=== PATIENT | male | born 1995 | race African-American/Black ===

== ENCOUNTER 2022-08-19 02:44 | Emergency (ER) | payer SELFPAY ==
[~2022-08-19] VITALS: Ht 183 cm; Wt 102.0 kg
[2022-08-19 02:52] VITALS: BP 140/87
[2022-08-19] MEDS ORDERED: BENZ100C18 PO (03:09)
--- NOTE | 2022-08-19 03:10 | ED Cough/URI ---
General Chief Complaint: Cough/Cold/Flu Symptoms Stated Complaint: COUGH Nursing Triage Note: COUGH, RUNNY NOSE, SORE THROAT X3 DAYS. Source: patient Exam Limitations: no limitations History of Present Illness Date Seen by Provider: Aug 19, 2022 Time Seen by Provider: 02:58 Initial Comments 27-year-old male with asthma presents for cough runny nose and sore throat for 3 days. His roommate recently had similar symptoms. Roommate went to a clinic and was tested for COVID which was reportedly negative. He has not had to use his asthma inhaler. No chest pain or abdominal pain. No nausea or vomiting Allergies and Home Medications Allergies Coded Allergies: No Known Drug Allergies (Unverified , 08/19/22) Patient Home Medication List Home Medication List Reviewed: Yes No Active Prescriptions or Reported Meds Review of Systems Review of Systems Constitutional: no symptoms reported EENTM: nose congestion, throat pain Respiratory: cough Cardiovascular: no symptoms reported Gastrointestinal: no symptoms reported Genitourinary: no symptoms reported Musculoskeletal: no symptoms reported Skin: no symptoms reported Psychiatric/Neurological: No Symptoms Reported Hematologic/Lymphatic: No Symptoms Reported Immunological/Allergic: no symptoms reported Past Oullqlj-Obzbkg-Ihuvjh Hx Patient Social History Tobacco Use?: Yes Substance use?: No Alcohol Use?: Yes Alcohol Frequency: Once in a while Pt feels they are or have been: No Immunizations Up To Date First/Initial COVID19 Vaccinat: na Past Medical History Surgery/Hospitalization HX: DENIES Family Medical History Reviewed Nursing Family Hx No Pertinent Family Hx Physical Exam Vital Signs - First Documented 08/19/22 02:52 Temp 36.9 Pulse 84 Resp 16 B/P (MAP) 140/87 (104) Pulse Ox 98 O2 Delivery Room Air Capillary Refill : Less Than 3 Seconds Height: '" Weight: lbs. oz. kg; 30.00 BMI Method: General Appearance: WD/WN, no apparent distress HEENT: PERRL/EOMI, normal ENT inspection, TMs normal, pharynx normal Neck: non-tender, full range of motion, supple, normal inspection Respiratory: chest non-tender, lungs clear, normal breath sounds, no respiratory distress, no accessory muscle use Cardiovascular: normal peripheral pulses, regular rate, rhythm, no edema, no gallop, no JVD, no murmur Gastrointestinal: normal bowel sounds, non tender, soft, no organomegaly, no pulsatile mass Extremities: non-tender, normal inspection, no pedal edema, normal capillary refill Neurologic/Psychiatric: alert, normal mood/affect, oriented x 3 Skin: normal color, warm/dry Lymphatic: no adenopathy Progress/Results/Core Measures Suspected Sepsis SIRS Temperature: Pulse: 84 Respiratory Rate: 16 Blood Pressure 140 /87 Mean: 104 Results/Orders Vital Signs/I&O 08/19/22 02:52 Temp 36.9 Pulse 84 Resp 16 B/P (MAP) 140/87 (104) Pulse Ox 98 O2 Delivery Room Air Capillary Refill : Less Than 3 Seconds Blood Pressure Mean: 104 Departure Communication (Admissions) Patient is hemodynamically stable with a normal exam. Vital signs are normal. Symptoms most consistent with common cold. He is not wheezing at all with no evidence of asthma exacerbation. No evidence for bacterial infection at this time. Discharged in stable condition with supportive care for Impression Primary Impression: Common cold Disposition: HOME, SELF-CARE Condition: Stable Departure-Patient Inst. Referrals: NO,LOCAL PHYSICIAN (PCP/Family) Primary Care Physician Patient Instructions: Viral Upper Respiratory Infection, Adult (DC) Add. Discharge Instructions: Increase your fluids at home, rest. I would try Zyrtec-D or Claritin-D [id number]. I have given you the medicine which may work for your cough. You can also use honey on top of this. Return to the emergency department for any severe concerns. Follow-up with your primary doctor for any nonemergent needs All discharge instructions reviewed with patient and/or family. Voiced understanding. Scripts Benzonatate (GIULIA GOMES) 100 Mg Capsule 100 MG PO TID for cough for 3 Days, #9 CAP Prov: ASAD DIAZ DO 08/19/22 ASAD DIAZ DO Aug 19, 2022 03:10
== END 2022-08-19 03:12 | disposition home or self-care (01) ==
LOC: ER 02:50
DX: J00 Acute nasopharyngitis [common cold] (principal); Z72.0 Tobacco use; Z28.310 Unvaccinated for COVID-19
CPT/HCPCS: 99283

== ENCOUNTER 2022-10-30 01:07 | Emergency (ER) | payer OTHER ==
[~2022-10-30 01:07] MED LIST: BENZ100C18 PO
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
[2022-10-30] MEDS ORDERED: fentaNYL INJ 100 MCG/2 ML AMP ONE (02:06)
[2022-10-30] MEDS ORDERED: MIDAZOLAM 5 MG/5 ML (VERSED) VIAL ONE (02:06)
[2022-10-30] MEDS ORDERED: KETOROLAC 30 MG/ML VIAL IVP ONE (02:15)
[2022-10-30] MEDS ORDERED: ACHD5005 PO (02:31)
[2022-10-30 03:30] VITALS: BP 133/88
--- NOTE | 2022-10-30 06:14 | Diagnostic Imaging Report ---
KNEE, LEFT, 3 VIEWS INDICATION: Knee pain. COMPARISON: None available. TECHNIQUE: 2 views left knee FINDINGS: There is irregularity of the inferior aspect of the patella with a probable avulsed fracture fragment. Additionally, the patella is high riding and there is soft tissue thickening in the expected region of the patellar tendon likely from rupture. No knee joint effusion. No other acute fracture. IMPRESSION: 1. Fracture of the lower pole of the patella is likely due to avulsion and rupture of the patellar tendon. 2. Agree with the preliminary interpretation by Emergency Room physician. Dictated by: Dictated on workstation # [id number]
[2022-11-02] MEDS ORDERED: ACHD5005 PO (12:37)
== END 2022-10-30 03:30 | disposition home or self-care (01) ==
LOC: EDUNIT# 01:07 → ER 01:11
DX: S83.095A Other dislocation of left patella, initial encounter (principal); F17.210 Nicotine dependence, cigarettes, uncomplicated; Z28.310 Unvaccinated for COVID-19; X99.8XXA Assault by other sharp object, initial encounter
CPT/HCPCS: 73562; 93041

== ENCOUNTER → 2022-11-05 | Outpatient (CLI) | payer OTHER ==
[~2022-11-05] MED LIST changes: +ACHD5005 PO
== END ==
LOC: ORTHO 16:22
PROVIDERS: ATTEND Orthopaedic Surgery
DX: S76.112A Strain of left quadriceps muscle, fascia and tendon, initial encounter (principal); X58.XXXA Exposure to other specified factors, initial encounter
CPT/HCPCS: 99203

== ENCOUNTER → 2022-11-05 | Outpatient (CLI) | payer SELFPAY ==
[~2022-11-05] VITALS: Ht 182.9 cm; Wt 101.0 kg
== END | disposition home or self-care (01) ==
LOC: PREOP 15:37
PROVIDERS: ATTEND Orthopaedic Surgery
DX: Z01.818 Encounter for other preprocedural examination (principal)

== ENCOUNTER 2022-11-09 06:22 | Day surgery (SDC) | payer OTHER ==
[2022-11-09] VITALS (12 sets, daily range): BP systolic 127–165; BP diastolic 86–109
[~2022-11-09] VITALS: Ht 182.9 cm; Wt 101.0 kg
[2022-11-09] MEDS: LACTATED RINGERS 1,000 ML IV PRN ×2 (06:57→09:39)
[2022-11-09] MEDS ORDERED: ceFAZolin INJECTION 2,000 MG in NS (IVPB) 50 ML IV ONE (07:00)
[2022-11-09] MEDS ORDERED: fentaNYL INJ 100 MCG/2 ML AMP ONE (07:11)
[2022-11-09] MEDS ORDERED: LIDOCAINE PF 2% 5 ML (XYLOCAINE) VIAL ONE (07:11)
[2022-11-09] MEDS ORDERED: SEVOFLURANE (ULTANE) 15 ML INHAL SOLN ONE ×2 (07:11→10:10)
[2022-11-09] MEDS ORDERED: proPOfol 200 MG/20 ML (DIPRIVAN) VIAL IV ONE ×2 (07:11→08:57)
[2022-11-09] MEDS ORDERED: MIDAZOLAM 2 MG/2 ML (VERSED) VIAL ONE (07:11)
[2022-11-09] MEDS ORDERED: ONDANSETRON 4 MG/2 ML (SDV) Z0FRAN ONE (07:11)
[2022-11-09] MEDS ORDERED: fentaNYL INJ 100 MCG/2 ML AMP IV ONE (07:30)
--- NOTE | 2022-11-09 08:32 | Progress Note-Pre Operative ---
Pre-Operative Progress Note Date of Available H&P: Nov 05, 2022 Date H&P Reviewed: Nov 09, 2022 Time H&P Reviewed: 08:20 History & Physical: H&P Reviewed, Patient Examed, No changes noted Pre-Operative Diagnosis: Left Patellar Tendon Rupture HOSSEIN ASHRAF MD Nov 09, 2022 08:32
[2022-11-09] MEDS ORDERED: GLYCOPYRROLATE 0.2 MG/ML (ROBINUL) 2 ML VIAL ONE (08:55)
[2022-11-09] MEDS ORDERED: ROPIVACAINE 5MG/ML 30ML VIAL ONE (08:58)
[2022-11-09] MEDS ORDERED: HYDROmorphone 2 MG/ML VIAL (DILAUDID) ONE ×2 (09:06→09:27)
[2022-11-09] MEDS ORDERED: KETAMINE 50 MG/5 ML SYRINGE ONE (09:26)
[2022-11-09] MEDS ORDERED: KETOROLAC 30 MG/ML VIAL ONE (09:57)
--- NOTE | 2022-11-09 10:29 | Operative Report - Ortho ---
Operative Report Surgeon (s)/Importer Or Exporter (s) Surgeon HOSSEIN ASHRAF MD Importer Or Exporter n/a Pre-Operative Diagnosis Left Patellar Tendon Rupture Post-Operative Diagnosis same Operative Report Date of Procedure: Nov 09, 2022 Name of Procedure Performed: Repair of Left Patellar Tendon Rupture Description & Findings After obtaining informed consent and marking the patient in the preoperative holding area, patient received IV antibiotics. Patient was taken to the operating room. General and regional anesthesia were induced. Surgical timeout was taken. The left lower extremity was prepped and draped in the usual sterile fashion. Incision was made from superior edge of patella to tibial tubercle. Blunt dissection was carried down and the rupture site was easily identified. Rongeur was used to remove clot and create a trough in the inferior pole of the patella. Paratenon was divided and the patellar tendon was exposed. The area of rupture proximally was freshened with scissors. A Krackow suture of #5 Ethibond was placed medially in the tendon and then a second Krackow suture was placed laterally. A lateral hole was drilled through the patella and one arm of each suture was passed. A medial hole was drilled and the remaining sutures limbs were passed through this holw. Knee was brought into extension and a patellar clamp was used to put distal traction on the patella. Both sutures were tied and demonstrated tight repair of the tendon to the bone trough. #1 Ethibond was used to perform retinacular repair. The wound was lavaged with normal saline. Knee was flexed and the repair remained intact without gapping. Subcutaneous layer was repaired with 2-0 vicryl. Skin was repaired with 3-0 v- loc. Wound was dressed with xeroform, 4x4s, ABD, webril, and MARIA G wrap. Patient tolerated the procedure well and was stable to the recovery room. Anesthesia Type General plus regional Estimated Blood Loss 100 mL Specimen(s) collected/removed None HOSSEIN ASHRAF MD Nov 09, 2022 10:29
[2022-11-09] MEDS ORDERED: HYDROmorphone 2 MG/ML VIAL (DILAUDID) IV ONE (10:30)
[2022-11-09] MEDS ORDERED: ONDANSETRON 4 MG/2 ML (SDV) Z0FRAN IVP PRN (10:30)
[2022-11-09] MEDS ORDERED: MEPERIDINE (DEMEROL) INJ 50 MG/ML IVP ONE (10:30)
[2022-11-09] MEDS ORDERED: ACHD5005 PO (10:32)
[2022-11-09] MEDS ORDERED: LABETALOL HCL 20 MG/4 ML VIAL ONE (11:11)
--- NOTE | 2022-11-09 13:25 | Anesthesia-General Post-Op ---
General Patient Condition Mental Status/LOC: Same as Preop Cardiovascular: Satisfactory Nausea/Vomiting: Absent Respiratory: Satisfactory Pain: Controlled Complications: Absent Post Op Complications Complications None Follow Up Care/Instructions Patient Instructions None needed. Anesthesia/Patient Condition Patient Condition Patient is doing well, no complaints, stable vital signs, no apparent adverse anesthesia problems. No complications reported per nursing. [place] [facility] [place]: Yes KEVIN THURMAN CRNA Nov 09, 2022 13:25
[2022-11-13] MEDS ORDERED: ACHD5005 PO (14:09)
== END 2022-11-09 12:30 | disposition home or self-care (01) ==
LOC: SDC 06:22
PROVIDERS: ATTEND Orthopaedic Surgery
DX: S76.112A Strain of left quadriceps muscle, fascia and tendon, initial encounter (principal); J45.909 Unspecified asthma, uncomplicated; Z28.310 Unvaccinated for COVID-19; X58.XXXA Exposure to other specified factors, initial encounter
CPT/HCPCS: 87081

== ENCOUNTER → 2022-11-19 | Outpatient (CLI) | payer OTHER | LOC: ORTHO 10:29 | PROVIDERS: ATTEND Orthopaedic Surgery | DX: Z09 Encounter for follow-up examination after completed treatment for conditions other than malignant neoplasm (principal) ==

== ENCOUNTER → 2022-12-03 | Outpatient (CLI) | payer OTHER | LOC: ORTHO 11:24 | PROVIDERS: ATTEND Orthopaedic Surgery | DX: Z47.89 Encounter for other orthopedic aftercare (principal) ==

== ENCOUNTER 2023-01-16 19:57 | Emergency (ER) | payer OTHER ==
[~2023-01-16] VITALS: Ht 182 cm; Wt 127.0 kg
[2023-01-16] MEDS ORDERED: LACTATED RINGERS 1,000 ML IV ONE (20:30)
[2023-01-16 20:33] LABS: BASOPHILS % (AUTO) 1 % (0-10); EOSINOPHILS # (AUTO) 0.2 10^3/uL (0.0-0.3); EOSINOPHILS % (AUTO) 2 % (0-10); HEMATOCRIT 47 % (40-54); HEMOGLOBIN 15.9 g/dL (13.3-17.7); LYMPHOCYTES # (AUTO) 2.1 10^3/uL (1.0-4.0); LYMPHOCYTES % (AUTO) 27 % (12-44); MEAN CORPUSCULAR HEMOGLOBIN 30 pg (25-34); MEAN CORPUSCULAR HGB CONC 34 g/dL (32-36); MEAN CORPUSCULAR VOLUME 88 fL (80-99); MEAN PLATELET VOLUME 10.7 fL (9.0-12.2); MONOCYTES # (AUTO) 0.8 10^3/uL (0.0-1.0); MONOCYTES % (AUTO) 10 % (0-12); NEUTROPHILS # (AUTO) 4.9 10^3/uL (1.8-7.8); NEUTROPHILS % (AUTO) 61 % (42-75); PLATELET COUNT 208 10^3/uL (130-400); WHITE BLOOD COUNT 8.1 10^3/uL (4.3-11.0)
[2023-01-16 20:40] LABS: BILIRUBIN,URINE NEGATIVE (NEGATIVE); CLARITY,URINE CLEAR; COLOR,URINE YELLOW; GLUCOSE, URINE (UA) NEGATIVE (NEGATIVE); KETONES,URINE NEGATIVE (NEGATIVE); LEUKOCYTE ESTERASE ,URINE NEGATIVE (NEGATIVE); NITRITE,URINE NEGATIVE (NEGATIVE); PROTEIN,URINE NEGATIVE (NEGATIVE)
[2023-01-16 20:41] LABS: FIBRIN DEGRADATION PRODUCTS 0.84 UG/ML (0.00-0.49); INR 0.9 (0.8-1.4); PROTHROMBIN TIME PATIENT 12.8 SEC (12.2-14.7)
[2023-01-16] MEDS ORDERED: ONDANSETRON 4 MG/2 ML (SDV) Z0FRAN IVP ONE (20:45)
[2023-01-16] MEDS ORDERED: CATHETER FLUSH 10 ML SYR IV PRN (20:45)
[2023-01-16] MEDS ORDERED: HOLD METFORMIN - RECEIVED CONTRAST 20 ML VIAL IV SCH ×2 (20:45→21:15)
[2023-01-16] MEDS ORDERED: IOHEXOL 350 MG/ML 100 ML (OMNIPAQUE 350) VIAL IV ONE ×2 (20:45→21:15)
[2023-01-16] MEDS ORDERED: PANTOPRAZOLE 40 MG (PROTONIX) VIAL IV ONE (20:45)
[2023-01-16] MEDS ORDERED: NS 100 ML (IVPB) BAG IV ONE ×2 (20:45→21:15)
[2023-01-16 20:48] LABS: ALANINE AMINOTRANSFERASE 22 U/L (0-55); ALBUMIN 4.5 GM/DL (3.2-4.5); ALKALINE PHOSPHATASE 85 U/L (40-136); AMYLASE 125 U/L (25-125); BILIRUBIN,TOTAL 0.7 MG/DL (0.1-1.0); BUN/CREATININE RATIO 13; CALCIUM 9.7 MG/DL (8.5-10.1); CARBON DIOXIDE 22 MMOL/L (21-32); CHLORIDE 103 MMOL/L (98-107); CREATINE KINASE 446 U/L (30-200); CREATININE SERUM 1.04 MG/DL (0.60-1.30); GFR ESTIMATED 100; GLUCOSE 109 MG/DL (70-105); LIPASE 100 U/L (8-78); SODIUM 137 MMOL/L (135-145); TOTAL PROTEIN 7.8 GM/DL (6.4-8.2)
[2023-01-16 20:48] LABS: BACTERIA,URINE TRACE /HPF; RBC,URINE RARE /HPF; SQUAMOUS EPITHELIAL CELL,UR RARE /HPF; WBC,URINE RARE /HPF
[2023-01-16 20:54] LABS: ACETAMINOPHEN < 10 UG/ML (10-30)
[2023-01-16 20:55] LABS: CREATINE KINASE MB 3.1 NG/ML (<6.6)
[2023-01-16 20:57] LABS: AMPHETAMINE SCREEN, URINE NEGATIVE (NEGATIVE); BARBITURATE SCREEN URINE NEGATIVE (NEGATIVE); BENZODIAZEPINES SCREEN URINE NEGATIVE (NEGATIVE); CANNABINOID SCREEN, URINE POSITIVE (NEGATIVE); COCAINE SCREEN URINE NEGATIVE (NEGATIVE); METHADONE STAT NEGATIVE (NEGATIVE); OPIATE SCREEN URINE NEGATIVE (NEGATIVE); OXYCODONE STAT NEGATIVE (NEGATIVE); TRICYCLIC ANTIDEPRESSANTS SCRE NEGATIVE (NEGATIVE)
[2023-01-16 20:58] LABS: PROPOXYPHENE STAT NEGATIVE (NEGATIVE)
[2023-01-16 20:58] LABS: ERYTHROCYTE SEDIMENTATION RATE 7 MM/HR (0-15)
--- NOTE | 2023-01-16 21:43 | Diagnostic Imaging Report ---
INDICATION: Chest and abdominal pain. CTA chest, abdomen and pelvis Thin axial sections through the chest, abdomen and pelvis are obtained following intravenous contrast bolus. Multiplanar MIP images were reconstructed and reviewed. All CT scans use one or more of the following dose optimizing techniques: automated exposure control, MA and/or KvP adjustment based on patient size and exam type or iterative reconstruction. COMPARISON: None available. FINDINGS: CTA CHEST: No pulmonary emboli. Normal caliber thoracic aorta without dissection. Lungs are clear. No pleural effusion or pneumothorax. No intrathoracic lymphadenopathy. 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 Remainder of the visualized skeletal structures normal. CT ABDOMEN and PELVIS WITH: No free intraperitoneal air or fluid. The liver, gallbladder, spleen and pancreas are all normal. Adrenals, kidneys and urinary bladder normal. Prostate is not enlarged. Bowel is unremarkable. Normal appendix. Normal caliber abdominal aorta without dissection. Normal regional skeleton. IMPRESSION: 1. No acute abnormality in the chest, abdomen or pelvis. Dictated by: Dictated on workstation # [id number]
[2023-01-16] MEDS ORDERED: KETOROLAC 30 MG/ML VIAL IVP ONE (22:15)
[2023-01-16] MEDS ORDERED: METOCLOPRAMIDE INJ 10 MG/2 ML (REGLAN) IVP ONE (22:15)
--- NOTE | 2023-01-16 22:25 | ED Abdominal Pain ---
General Chief Complaint: Abdominal/GI Problems Stated Complaint: STOMACH PAIN Nursing Triage Note: PATIENT REPORTS ABDOMINAL PAIN STARTED YESTERDAY. STATES VOMITTED YESTERDAY, INTENSE ABDOMINAL CRAMPING TODAY. Source of Information: Patient History of Present Illness Date Seen by Provider: Jan 16, 2023 Time Seen by Provider: 20:18 Initial Comments PT ARRIVES VIA POV FROM HOME C/O ABDOMINAL PAIN SINCE YESTERDAY AFTERNOON PAIN IS ALL OVER, AND IS CONSTANT, RATES PAIN 8/10 PAIN IS WORSE WITH MOVEMENTS OR BREATHING, OR COUGHING DOES NOT FEEL SHORT OF BREATH, JUST HURTS TO BREATHE HE VOMITED YESTERDAY FROM [id number] AM, NO VOMITING SINCE, BUT IS STILL NAUSEATED HAD NORMAL BM THIS AM NO URINARY SYMPTOMS AND VOIDING A NORMAL AMOUNT NO FEVER HE HAS NOT TAKEN ANYTHING FOR SYMPTOMS NO HISTORY OF SIMILAR PT DRINKS ALCOHOL DAILY--3-4 BEERS PLUS 2-3 SHOTS OF HARD LIQUOR EVERY DAY, HE ALSO SMOKES MARIJUANA DAILY, AND SMOKES 1 PPD CIGARETTES HAS HISTORY OF ASTHMA, NO HISTORY OF GI PROBLEMS OR ABDOMINAL SURGERY PT HAD LEFT KNEE SURGERY IN OCTOBER--OPEN KNEE SURGERY FOR PATELLAR TENDON RUPTURE. PCP: [facility], BUT RARELY GOES THERE Allergies and Home Medications Allergies Coded Allergies: No Known Drug Allergies (Unverified , 08/19/22) Patient Home Medication List Home Medication List Reviewed: Yes Dicyclomine HCl (Dicyclomine HCl) 20 Mg Tablet, 20 MG PO Q6H Prescribed by: KY THOMPSON on 01/16/232231 Hydrocodone/Acetaminophen (Hydrocodone-Acetamin 5-325 mg) 5 Mg-325 Mg Tablet, 1 EACH PO Q4H PRN for PAIN Prescribed by: KIMBERLY YOST on 11/13/22 1410 Ondansetron (Ondansetron Odt) 8 Mg Tab.rapdis, 8 MG PO Q6H Prescribed by: KY THOMPSON on 01/16/232231 Pantoprazole Sodium (Protonix) 40 Mg Tablet.dr, 40 MG PO DAILY Prescribed by: KY THOMPSON on 01/16/232231 Review of Systems Review of Systems Constitutional: no symptoms reported Respiratory: See HPI Cardiovascular: No Symptoms Reported Gastrointestinal: See HPI, Abdominal Pain; Denies Constipated, Denies Diarrhea; Nausea, Vomiting Genitourinary: No Symptoms Reported Musculoskeletal: no symptoms reported Skin: no symptoms reported Psychiatric/Neurological: No Symptoms Reported Endocrine: No Symptoms Reported Hematologic/Lymphatic: No Symptoms Reported Past Mxncivn-Vlmjwn-Xdazjl Hx Patient Social History Tobacco Use?: Yes Tobacco type used: Cigarettes Smoking Status: Current Everyday Smoker Substance use?: Yes Substance type: Marijuana Substance frequency: Daily Alcohol Use?: Yes Alcohol type: Beer, Hard Liquor Alcohol Frequency: Daily Pt feels they are or have been: No Immunizations Up To Date Tetanus Booster (TDap): Unknown Influenza Vaccine Up-to-Date: No; Not Current First/Initial COVID19 Vaccinat: na Second COVID19 Vaccination Joshua: na Third COVID19 Vaccination Date: na Seasonal Allergies Seasonal Allergies: Yes Past Medical History Surgery/Hospitalization HX: DENIES Surgeries: No Respiratory: Yes Asthma Currently Using CPAP: No Currently Using BIPAP: No Cardiac: No Neurological: No Sexually Transmitted Disease: No HIV/AIDS: No Genitourinary: No Gastrointestinal: No Musculoskeletal: Yes (LEFT PATELLA RUPTURE) Endocrine: No HEENT: No Cancer: No Psychosocial: No Integumentary: No Blood Disorders: No Family Medical History No Pertinent Family Hx SOCIAL HISTORY: -SMOKES 1 PPD -ETOH--DRINKS 3-4 BEERS PLUS 2-3 SHOTS OF HARD LIQUOR EVERY DAY -DRUGS--DAILY MARIJUANA USE PAST SURGICAL HISTORY: -LEFT PATELLAR TENDON REPAIR 10/[address] ASHRAF. Physical Exam Vital Signs Vital Signs - First Documented 01/16/23 20:10 Temp 36.7 Pulse 89 Resp 20 B/P (MAP) 141/89 (106) Pulse Ox 97 O2 Delivery Room Air Capillary Refill : Less Than 3 Seconds Height/Weight/BMI Height: '" Weight: lbs. oz. kg; 38.00 BMI Method: General Appearance: WD/WN, no apparent distress HEENT: normal ENT inspection; No scleral icterus (R), No scleral icterus (L) Neck: normal inspection Respiratory: normal breath sounds, no respiratory distress, no accessory muscle use Cardiovascular: regular rate, rhythm, no murmur Gastrointestinal: normal bowel sounds, soft; No distended, No guarding, No rebound; tenderness (DIFFUSE TENDERNESS.); No hernia, No mass Extremities: normal inspection, normal capillary refill Back: no CVA tenderness Neurologic/Psychiatric: cylinder grinder II-XII nml as tested, no motor/sensory deficits, alert, normal mood/affect, oriented x 3 Skin: normal color (PT ), warm/dry; No rash; tattoos/piercings (MULTIPLE TATTOOS) Focused Exam Lactate Level 01/16/23 20:34: Lactic Acid Level 0.82 Lactic Acid Level Laboratory Tests Test 01/16/23 20:34 Lactic Acid Level 0.82 MMOL/L (0.50-2.00) Procedures/Interventions Patient Education: Explained Benefits, Explained Risks, Pt. Ack. Understanding Breath Sounds per Auscultation: Clear Heart Sounds per Auscultation: Regular Airway Exam: Mouth opens >2 fingers Progress/Results/Core Measures Results/Orders Lab Results Laboratory Tests Test 01/16/23 20:18 01/16/23 20:34 Range/Units White Blood Count 8.1 4.3-11.0 10^3/uL Red Blood Count 5.29 4.30-5.52 10^6/uL Hemoglobin 15.9 13.3-17.7 g/dL Hematocrit 47 40-54 % Mean Corpuscular Volume 88 80-99 fL Mean Corpuscular Hemoglobin 30 25-34 pg Mean Corpuscular Hemoglobin Concent 34 32-36 g/dL Red Cell Distribution Width 13.5 10.0-14.5 % Platelet Count 208 130-400 10^3/uL Mean Platelet Volume 10.7 9.0-12.2 fL Immature Granulocyte % (Auto) 0 % Neutrophils (%) (Auto) 61 42-75 % Lymphocytes (%) (Auto) 27 12-44 % Monocytes (%) (Auto) 10 0-12 % Eosinophils (%) (Auto) 2 0-10 % Basophils (%) (Auto) 1 0-10 % Neutrophils # (Auto) 4.9 1.8-7.8 10^3/uL Lymphocytes # (Auto) 2.1 1.0-4.0 10^3/uL Monocytes # (Auto) 0.8 0.0-1.0 10^3/uL Eosinophils # (Auto) 0.2 0.0-0.3 10^3/uL Basophils # (Auto) 0.0 0.0-0.1 10^3/uL Immature Granulocyte # (Auto) 0.0 0.0-0.1 10^3/uL Erythrocyte Sedimentation Rate 7 0-15 MM/HR Prothrombin Time 12.8 12.2-14.7 SEC INR Comment 0.9 0.8-1.4 Activated Partial Thromboplast Time 32 24-35 SEC D-Dimer 0.84 H 0.00-0.49 UG/ML Sodium Level 137 135-145 MMOL/L Potassium Level 4.0 3.6-5.0 MMOL/L Chloride Level 103 98-107 MMOL/L Carbon Dioxide Level 22 21-32 MMOL/L Anion Gap 12 5-14 MMOL/L Blood Urea Nitrogen 13 7-18 MG/DL Creatinine 1.04 0.60-1.30 MG/DL Estimat Glomerular Filtration Rate 100 BUN/Creatinine Ratio 13 Glucose Level 109 H 70-105 MG/DL Calcium Level 9.7 8.5-10.1 MG/DL Corrected Calcium 9.3 8.5-10.1 MG/DL Magnesium Level 2.0 1.6-2.4 MG/DL Total Bilirubin 0.7 0.1-1.0 MG/DL Aspartate Amino Transf (AST/SGOT) 23 5-34 U/L Alanine Aminotransferase (ALT/SGPT) 22 0-55 U/L Alkaline Phosphatase 85 40-136 U/L Total Creatine Kinase 446 H 30-200 U/L Creatine Kinase MB 3.1 <6.6 NG/ML Troponin I < 0.028 <0.028 NG/ML C-Reactive Protein High Sensitivity 1.99 H 0.00-0.50 MG/DL B-Type Natriuretic Peptide < 10.0 <100.0 PG/ML Total Protein 7.8 6.4-8.2 GM/DL Albumin 4.5 3.2-4.5 GM/DL Amylase Level 125 25-125 U/L Lipase 100 H 8-78 U/L Acetaminophen Level < 10 L 10-30 UG/ML Serum Alcohol < 10 <10 MG/DL Urine Color YELLOW Urine Clarity CLEAR Urine pH 6.0 5-9 Urine Specific [place] 1.025 H 1.016-1.022 Urine Protein NEGATIVE NEGATIVE Urine Glucose (UA) NEGATIVE NEGATIVE Urine Ketones NEGATIVE NEGATIVE Urine Nitrite NEGATIVE NEGATIVE Urine Bilirubin NEGATIVE NEGATIVE Urine Urobilinogen 1.0 < = 1.0 MG/DL Urine Leukocyte Esterase NEGATIVE NEGATIVE Urine RBC (Auto) NEGATIVE NEGATIVE Urine RBC RARE /HPF Urine WBC RARE /HPF Urine Squamous Epithelial Cells RARE /HPF Urine Crystals NONE /LPF Urine Bacteria TRACE /HPF Urine Casts NONE /LPF Urine Mucus NEGATIVE /LPF Urine Culture Indicated NO Lactic Acid Level 0.82 0.50-2.00 MMOL/L Urine Opiates Screen NEGATIVE NEGATIVE Urine Oxycodone Screen NEGATIVE NEGATIVE Urine Methadone Screen NEGATIVE NEGATIVE Urine Propoxyphene Screen NEGATIVE NEGATIVE Urine Barbiturates Screen NEGATIVE NEGATIVE Ur Tricyclic Antidepressants Screen NEGATIVE NEGATIVE Urine Phencyclidine Screen NEGATIVE NEGATIVE Urine Amphetamines Screen NEGATIVE NEGATIVE Urine Methamphetamines Screen NEGATIVE NEGATIVE Urine Benzodiazepines Screen NEGATIVE NEGATIVE Urine Cocaine Screen NEGATIVE NEGATIVE Urine Cannabinoids Screen POSITIVE H NEGATIVE My Orders Orders - KY THOMPSON DO Ekg Tracing (01/16/23 20:18) Ed Iv/Invasive Line Start (01/16/23 20:24) Monitor-Rhythm Ecg Trace Only (01/16/23 20:24) Alcohol (01/16/23 20:24) Amylase (01/16/23 20:24) Bnp [place] (01/16/23 20:24) Cbc With Automated Diff (01/16/23 20:24) Comprehensive Metabolic Panel (01/16/23 20:24) Creatine Kinase (01/16/23 20:24) Creatine Kinase Mb (01/16/23 20:24) Hs C Reactive Protein (01/16/23 20:24) Fibrin Degradation Products (01/16/23 20:24) Drug Screen Stat (Urine) (01/16/23 20:24) Lactic Acid Analyzer (01/16/23 20:24) Lipase (01/16/23 20:24) Magnesium (01/16/23 20:24) Protime With Inr (01/16/23 20:24) Partial Thromboplastin Time (01/16/23 20:24) Ua Culture If Indicated (01/16/23 20:24) Erythrocyte Sedimentation Rate (01/16/23 20:24) Troponin I [place] (01/16/23 20:24) Ed Iv/Invasive Line Start (01/16/23 20:24) Lactated Ringers (Lr 1000 Ml Iv Solution (01/16/23 20:30) Ct Torie Chest/Noang Abd-Pelv W (01/16/23 20:24) Acetaminophen (01/16/23 20:18) Ondansetron Injection (Zofran Injectio (01/16/23 20:45) Pantoprazole Injection (Protonix Injecti (01/16/23 20:45) Iohexol Injection (Omnipaque 350 Mg/Ml 1 (01/16/23 20:45) Received Contrast (Hold Metformin- Contr (01/16/23 20:45) Sodium Chloride Flush (Catheter Flush Sy (01/16/23 20:45) Ns (Ivpb) (Sodium Chloride 0.9% Ivpb Bag (01/16/23 20:45) Iohexol Injection (Omnipaque 350 Mg/Ml 1 (01/16/23 21:15) Received Contrast (Hold Metformin- Contr (01/16/23 21:15) Ns (Ivpb) (Sodium Chloride 0.9% Ivpb Bag (01/16/23 21:15) Metoclopramide Injection (Reglan Injecti (01/16/23 22:15) Ketorolac Injection (Toradol Injection) (01/16/23 22:15) Medications Given in ED Vital Signs/I&O 01/16/23 01/16/23 20:10 23:03 Temp 36.7 Pulse 89 78 Resp 20 18 B/P (MAP) 141/89 (106) 139/85 Pulse Ox 97 99 O2 Delivery Room Air Room Air Blood Pressure Mean: 106 Progress Progress Note : Progress Note GIVEN: -IV FLUIDS -ZOFRAN -PROTONIX -REGLAN -TORADOL UNEVENTFUL ER STAY VITALS STABLE NO VOMITING DURING ER STAY, NAUSEA GONE AND PAIN IS IMPROVED PT STATES HE WANTS TO GO HOME. DISCUSSED TEST RESULTS, ANTICIPATED COURSE, SYMPTOMATIC TREATMENT, DIET, ME DICATIONS, NEED FOR FOLLOW UP AND RETURN PRECAUTIONS REVIEWED PRIOR RECORDS--ER VISITS AND RECENT KNEE SURGERY. Initial ECG Impression Date: Jan 16, 2023 Initial ECG Impression Time: 20:20 Initial ECG Rate: 87 Initial ECG Rhythm: Normal Sinus Initial ECG Intervals DC 142 QRS 88 QT/QTC 341/385 Initial ECG Comparisson: No Previous ECG Available Comment INTERPRETED BY ME Diagnostic Imaging Comments CT CHEST ANGIOGRAM / ABDOMEN-PELVIS--PER RADIOLOGIST REPORT AT 2220 FINDINGS: CTA CHEST: No pulmonary emboli. Normal caliber thoracic aorta without dissection. Lungs are clear. No pleural effusion or pneumothorax. No intrathoracic lymphadenopathy. 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 Remainder of the visualized skeletal structures normal. CT ABDOMEN and PELVIS WITH: No free intraperitoneal air or fluid. The liver, gallbladder, spleen and pancreas are all normal. Adrenals, kidneys and urinary bladder normal. Prostate is not enlarged. Bowel is unremarkable. Normal appendix. Normal caliber abdominal aorta without dissection. Normal regional skeleton. IMPRESSION: 1. No acute abnormality in the chest, abdomen or pelvis. Reviewed: Reviewed by Me Departure Impression Primary Impression: Abdominal pain Additional Impressions: POSSIBLE GASTRITIS Alcohol abuse, daily use Cannabis abuse, daily use Disposition: HOME, SELF-CARE Condition: Stable Departure-Patient Inst. Decision time for Depature: 22:25 Referrals: [facility] (PCP/Family) Primary Care Physician Patient Instructions: Abdominal Pain, Adult ED, Alcohol Use Disorder ED, Marijuana Use and Addiction (DC), Nausea and Vomiting, Adult ED Add. Discharge Instructions: HOME, REST CLEAR LIQUIDS, SIPS AT A TIME--WATER, BROTH, JELLO, GATORADE TOMORROW IF YOU ARE BETTER, ADD BRATS DIET TO CLEAR LIQUIDS--BANANAS, RICE, APPLESAUCE, TOAST, SALTINES FOLLOW UP WITH [facility] IN 1-2 DAYS IF NO BETTER, RETURN TO ER IF SYMPTOMS WORSEN All discharge instructions reviewed with patient and/or family. Voiced understanding. Scripts Dicyclomine HCl (Dicyclomine HCl) 20 Mg Tablet 20 MG PO Q6H for Abdominal Pain, #20 TAB Prov: KY THOMPSON DO 01/16/23 Pantoprazole Sodium (Protonix) 40 Mg Tablet.dr 40 MG PO DAILY, #15 TAB Prov: KY THOMPSON DO 01/16/23 Ondansetron (Ondansetron Odt) 8 Mg Tab.rapdis 8 MG PO Q6H, #10 TAB Prov: KY THOMPSON DO 01/16/23 KY THOMPSON DO Jan 16, 2023 22:25
[2023-01-16] MEDS ORDERED: DICY20TA PO (22:32)
[2023-01-16] MEDS ORDERED: PANT40TA2 PO (22:32)
[2023-01-16] MEDS ORDERED: ONDA8TAB13 PO (22:32)
[2023-01-16 23:03] VITALS: BP 139/85
== END 2023-01-16 23:04 | disposition home or self-care (01) ==
LOC: EDUNIT# 19:57 → ER 20:01
DX: R10.84 Generalized abdominal pain (principal); R11.0 Nausea; F10.10 Alcohol abuse, uncomplicated; F12.10 Cannabis abuse, uncomplicated; F17.210 Nicotine dependence, cigarettes, uncomplicated; Z28.310 Unvaccinated for COVID-19
CPT/HCPCS: 71275; 74177; 80053; 80306; 81000; 82150; 82550; 82553; 83605; 83690; 83735; 83880; 84484; 85025; 85379; 85610; 85652; 85730; 86141; 93041; 99284; G0480 ×2; 36415; 80320; 80329; 93005